=== PATIENT | female | born 1960 | race Caucasian/White ===

== ENCOUNTER 2017-02-15 15:30 | Emergency (ER) | payer MEDICAID ==
[2017-02-15 15:40] VITALS: BP 139/51
--- NOTE | 2017-02-15 16:56 | EDM.PDOC ---
ED HPI GENERAL MEDICAL PROBLEM - General Chief Complaint: General Stated Complaint: L HAND FROSTBITE Time Seen by Provider: 02/15/17 16:30 Source of Information: Reports: Patient, Family History Limitations: Reports: No Limitations - History of Present Illness INITIAL COMMENTS - FREE TEXT/NARRATIVE: Patient is a 56-year-old with known diabetes osteoarthritis of right hand states that she fell last night in the ice and snow could not get up for about 20 minutes when she went inside the house she noticed swelling of the tips of her fingers and decreased sensation on both the right and left hand worse in the left. She waited approximately 20 hours to coming to the emergency room and at this time she had swelling of both hands distal ends tips of fingers she did have some passive flexion but this was limited secondary to swelling. Onset: Today Duration: Hour(s): (20 hours a workable), Improving Location: Reports: Upper Extremity, Left, Upper Extremity, Right Quality: Reports: Burning, Throbbing Severity: Moderate Improves with: Reports: Rest Worsens with: Reports: Heat Therapy Context: Reports: Trauma Left Hand Pain Score (Numeric/FACES): 6 - Related Data Allergies Allergy/AdvReac Type Severity Reaction Status Date / Time adhesive Allergy Severe Hives Verified 10/23/14 15:59 zolpidem tartrate Allergy Intermediate Disorientat Verified 10/23/14 15:59 [From Korina] ion latex Allergy Cannot Verified 10/23/14 15:59 Remember Home Meds: Home Meds Aspirin [Children's Aspirin] 81 mg PO BEDTIME 07/11/13 [History] Calcium Carbonate/Vitamin D3 [Calcium 600 + D3 Softgel] 1 each PO QPM 07/11/13 [ History] Cinnamon Bark [Cinnamon] 1,000 mg PO QAM 07/11/13 [History] Glucagon,Human Recombinant [Glucagon Emergency Kit] 1 mg INJECT ASDIRECTED PRN 07/11/13 [History] Insulin Glarg,Human.Rec.Analog [LantUS] 25 unit SQ QAM 07/11/13 [History] Multivitamin [Multivitamins] 1 each PO QAM 07/11/13 [History] [place]-3/DHA/Epa/Fish Oil [Fish Oil 1,000 mg Softgel] 1 each PO BID 07/11/13 [ History] Verapamil HCl [Verapamil ER] 240 mg PO BEDTIME 07/11/13 [History] atorvaSTATin [Lipitor] 40 mg PO BEDTIME 07/11/13 [History] Amitriptyline [Elavil] 30 mg PO BEDTIME 02/24/15 [History] Insulin Aspart [Novolog] 8 unit SQ TIDMEALS 02/24/15 [History] Ibuprofen [Motrin] 400 mg PO Q6H 10 Days #40 tablet 02/15/17 [Rx] Oxybutynin 5 mg PO DAILY 02/15/17 [History] Past Medical History HEENT History: Reports: Allergic Rhinitis, Impaired Vision Cardiovascular History: Reports: Blood Clots/VTE/DVT, High Cholesterol, Hypertension Respiratory History: Reports: Asthma Gastrointestinal History: Reports: Hepatitis, Hiatal Hernia, Jaundice Genitourinary History: Reports: Renal Calculus Musculoskeletal History: Reports: Fracture, Osteoarthritis Neurological History: Reports: Headaches, Chronic, Migraines Psychiatric History: Reports: Addiction, Anxiety, Depression, Psych Hospitalization(s), Suicide Attempt Endocrine/Metabolic History: Reports: Diabetes, Type I Hematologic History: Reports: None, Anemia, Iron Deficiency Immunologic History: Reports: None Oncologic (Cancer) History: Reports: None Dermatologic History: Reports: None - Infectious Disease History Infectious Disease History: Reports: Chicken Pox, Measles, Mumps - Past Surgical History Head Surgeries/Procedures: Reports: Craniotomy HEENT Surgical History: Reports: Oral Surgery Respiratory Surgical History: Reports: None Female Surgical History: Reports: Tubal Ligation, Other (See Below) Musculoskeletal Surgical History: Reports: ORIF Oncologic Surgical History: Reports: None Dermatological Surgical History: Reports: None - Past Imaging History Past Imaging History: Reports: Mammogram (In about 1999) Social & Family History - Family History HEENT: Reports: Allergic Rhinitis Cardiac: Reports: [place] Respiratory: Reports: None GI: Reports: None : Reports: None OBGYN: Reports: None Musculoskeletal: Reports: Osteoarthritis Neurological: Reports: None Psychiatric: Reports: None Endocrine/Metabolic: Reports: Hypothyroidism Hematologic: Reports: None Dermatologic: Reports: None Oncologic: Reports: Colon, Lung - Tobacco Use Smoking Status *Q: Former Smoker Years of Tobacco use: 40 Packs/Tins Daily: 0.5 (Maximum use one pack per day) Used Tobacco, but Quit: Yes Month Tobacco Last Used: 1 Second Hand Smoke Exposure: Yes - Caffeine Use Caffeine Use: Reports: Soda - Alcohol Use Days Per Week of Alcohol Use: 1 (Previous DWI 2013 previous history of alcohol abuse in the 1980s until about 2013) Number of Drinks Per Day: 6 (Usually beer about twice per month currently) Total Drinks Per Week: 6 - Recreational Drug Use Recreational Drug Use: No Drug Use in Last 12 Months: No - Living Situation & Occupation Living situation: Reports: , with Family ED ROS GENERAL - Review of Systems Review Of Systems: See Below Constitutional: Reports: No Symptoms HEENT: Reports: No Symptoms Respiratory: Reports: No Symptoms Cardiovascular: Reports: No Symptoms Endocrine: Reports: Other (Diabetic) GI/Abdominal: Reports: No Symptoms : Reports: No Symptoms Musculoskeletal: Reports: Joint Swelling, Muscle Stiffness Skin: Reports: Erythema, Change in Color, Other (Blisters) Neurological: Reports: No Symptoms Psychiatric: Reports: Anxiety Hematologic/Lymphatic: Reports: No Symptoms Immunologic: Reports: No Symptoms ED EXAM, GENERAL - Physical Exam Exam: See Below Exam Limited By: No Limitations General Appearance: Alert, WD/WN, No Apparent Distress, Anxious Ears: Normal External Exam, Normal Canal, Hearing Grossly Normal, Normal TMs Nose: Normal Inspection, Normal Mucosa, No Blood Throat/Mouth: Normal Inspection, Normal Lips, Normal Teeth, Normal Gums, Normal Oropharynx, Normal Voice, No Airway Compromise Head: Atraumatic, Normocephalic Neck: Normal Inspection, Supple, Non-Tender, Full Range of Motion Respiratory/Chest: No Respiratory Distress, Lungs Clear, Normal Breath Sounds, No Accessory Muscle Use, Chest Non-Tender Cardiovascular: Normal Peripheral Pulses, Regular Rate, Rhythm, No Edema, No Gallop, No JVD, No Murmur, No Rub Peripheral Pulses: 2+: Radial (L), Radial (R) GI/Abdominal: Normal Bowel Sounds, Soft, Non-Tender, No Organomegaly, No Distention, No Abnormal Bruit, No Mass (Female) Exam: Deferred Rectal (Female) Exam: Deferred Back Exam: Normal Inspection, Full Range of Motion, NT Extremities: Other (Right hand swelling this distal tips of second through fifth finger with with redness and increased capillary refill in the tips of the second fourth and fifth the third finger has some ecchymosis with blisters the left hand was tender to touch with increase ecchymosis in the distal ends of the second through fifth finger also decreased range of motion decreased sensations to touch but had some range of motion passively) Course - Vital Signs Last Recorded V/S: Last Vital Signs Temp 98.7 F 02/15/17 15:32 Pulse 97 02/15/17 15:32 Resp 16 02/15/17 15:32 BP 139/51 L 02/15/17 15:32 Pulse Ox 98 02/15/17 15:32 Departure - Departure Time of Disposition: 17:04 Disposition: Home, Self-Care 01 Condition: Fair Clinical Impression: Frostbite of both great toes - Discharge Information Referrals: Monica Ng PA [Primary Care Provider] - Care Plan Goals: Patient was started on Motrin 400 every 6 hours for 10 days also will come in tomorrow for dressing changes around 2:30 2:52 in the afternoon
[2017-02-15 17:20] LABS: CHLORIDE,CL 103 mmol/L (98-107); SODIUM,NA 140 mmol/L (136-145)
== END 2017-02-15 17:30 | disposition home or self-care (01) ==
LOC: LL.ED 15:30
DX: S60.222A Contusion of left hand, initial encounter (principal); S60.221A Contusion of right hand, initial encounter; T33.832A Superficial frostbite of left toe(s), initial encounter; T33.831A Superficial frostbite of right toe(s), initial encounter; I10 Essential (primary) hypertension; E78.00 Pure hypercholesterolemia, unspecified; E10.9 Type 1 diabetes mellitus without complications; F32.9 Major depressive disorder, single episode, unspecified; Z87.891 Personal history of nicotine dependence; Z79.4 Long term (current) use of insulin; Z79.82 Long term (current) use of aspirin; Z79.899 Other long term (current) drug therapy; Z88.8 Allergy status to other drugs, medicaments and biological substances; Z91.040 Latex allergy status; Z91.048 Other nonmedicinal substance allergy status; X31.XXXA Exposure to excessive natural cold, initial encounter; W00.0XXA Fall on same level due to ice and snow, initial encounter
CPT/HCPCS: 36415; 80048; 99283

== ENCOUNTER 2018-09-04 09:13 | Day surgery (SDC) | payer MEDICAID ==
[~2018-09-04 09:13] MED LIST: Midazolam 1 MG/ML 2 ML SDV ONE; Propofol 200 MG/20 ML SDV ONE
[2018-09-04] MEDS ORDERED: Lactated Ringers 1,000 ML IV SCH (09:15)
[2018-09-04] MEDS ORDERED: Sodium Chloride 0.9% 10 ML Syringe FLUSH PRN (09:15)
[2018-09-04] MEDS ORDERED: Albuterol/Ipratropium 3.0-0.5 MG/3 ML Neb Soln NEB ONE (10:16)
--- NOTE | 2018-09-04 10:21 | PCM.HPR ---
H & P Addendum review - H & P Addendum Review Date of Original H & P: 08/26/18 Date Reviewed: 09/04/18 Time Reviewed: 10:21 Patient was Examined: No Changes
[2018-09-04] MEDS ORDERED: Insulin Regular, Human 100 Units/ML 3 ML Vial SUBCUT ONE (10:23)
[2018-09-04] MEDS ORDERED: Propofol 200 MG/20 ML SDV ONE (10:40)
[2018-09-04] MEDS ORDERED: Midazolam 1 MG/ML 2 ML SDV ONE (10:40)
--- NOTE | 2018-09-04 11:07 | PCM.OPNOTE ---
- General Post-Op/Procedure Note Date of Surgery/Procedure: 09/04/18 Operative Procedure(s): Colonoscopy Findings: Normal Pre Op Diagnosis: Screening Post-Op Diagnosis: Same Anesthesia Technique: LOUISA Primary Surgeon: Oswaldo Melendez Anesthesia Provider: Kasey Vora Complications: None Condition: Good
[2018-09-04 13:30] VITALS: BP 101/66; PULSE 92
--- NOTE | 2018-09-04 14:34 | OR ---
Date of Procedure: 09/04/2018 PREOPERATIVE DIAGNOSIS: Colon screening. POSTOPERATIVE DIAGNOSIS: Normal colonoscopy. PROCEDURE: Colonoscopy. ANESTHESIA: IV sedation. DESCRIPTION OF PROCEDURE: The patient was brought to the procedure room where she was placed on her left side and IV sedation administered. Digital rectal exam was performed which was normal. Colonoscope was inserted and advanced to the level of the cecum with some difficulty getting through a tortuous colon requiring pressure on the abdomen. I was able to reach the cecum which was confirmed by identifying the appendiceal lumen and the ileocecal valve. The prep was good and surfaces were well visualized. Upon withdrawing the scope, the ascending, transverse, and descending colon were normal in appearance. Sigmoid colon and rectum were normal. Retroflexion was normal. Air was removed and the scope withdrawn. The patient tolerated the procedure well and returned to Recovery in stable condition. Recommend routine colon screening in 10 years. PASHA LEIVA MD /[id number]
== END 2018-09-04 12:35 | disposition home or self-care (01) ==
LOC: LL.SDS 09:13
PROVIDERS: ATTEND Surgery
DX: Z12.11 Encounter for screening for malignant neoplasm of colon (principal); Q43.8 Other specified congenital malformations of intestine; F10.10 Alcohol abuse, uncomplicated; J44.9 Chronic obstructive pulmonary disease, unspecified; M19.049 Primary osteoarthritis, unspecified hand; E10.649 Type 1 diabetes mellitus with hypoglycemia without coma; I10 Essential (primary) hypertension; E78.5 Hyperlipidemia, unspecified; G47.00 Insomnia, unspecified; Z80.0 Family history of malignant neoplasm of digestive organs; Z79.899 Other long term (current) drug therapy; Z79.4 Long term (current) use of insulin; Z99.81 Dependence on supplemental oxygen; Z79.51 Long term (current) use of inhaled steroids; Z79.82 Long term (current) use of aspirin; Z91.040 Latex allergy status; Z88.8 Allergy status to other drugs, medicaments and biological substances; Z91.048 Other nonmedicinal substance allergy status
CPT/HCPCS: 45378; 82962; J1815; J2250; J2704; J7120; J7620-GY

== ENCOUNTER 2018-10-07 16:52 | Emergency (ER) | payer MEDICAID ==
[2018-10-07] MEDS ORDERED: Albuterol/Ipratropium 3.0-0.5 MG/3 ML Neb Soln ONE (17:01)
[2018-10-07] MEDS ORDERED: Albuterol/Ipratropium 3.0-0.5 MG/3 ML Neb Soln NEB ONE (17:01)
[2018-10-07 17:27] LABS: CHLORIDE,CL 103 mmol/L (98-107); SODIUM,NA 138 mmol/L (136-145)
--- NOTE | 2018-10-07 18:06 | EDM.PDOC ---
ED HPI GENERAL MEDICAL PROBLEM - General Chief Complaint: Respiratory Problem Stated Complaint: short of breath Time Seen by Provider: 10/07/18 17:00 Source of Information: Reports: Patient History Limitations: Reports: No Limitations - History of Present Illness INITIAL COMMENTS - FREE TEXT/NARRATIVE: Patient is a 58-year-old with history of COPD shortness of breath patient is on albuterol Atrovent be a 4 times a day states that this morning she had her albuterol later in the day went to eat and while in the bar was short of breath which progressed at that time 911 was called and she was transferred in Onset: Sudden Duration: Hour(s):, Constant Location: Reports: Chest Severity: Severe Improves with: Reports: Medication Worsens with: Reports: None - Related Data Allergies Allergy/AdvReac Type Severity Reaction Status Date / Time adhesive Allergy Severe Hives Verified 10/07/18 17:11 zolpidem tartrate Allergy Intermediate Disorientat Verified 10/07/18 17:11 [From Korina] ion latex Allergy Cannot Verified 10/07/18 17:11 Remember Home Meds: Home Meds Calcium Carbonate/Vitamin D3 [Calcium 600 + Vit D 400 Softgl] 1 each PO QPM [History] Cinnamon Bark [Cinnamon] 500 mg PO QAM 07/11/13 [History] Insulin Glarg,Human.Rec.Analog [Lantus] 15 unit SQ BEDTIME 07/11/13 [History] Multivitamin [Multivitamins] 1 each PO QAM 07/11/13 [History] Verapamil HCl [Verapamil ER] 240 mg PO BEDTIME 07/11/13 [History] atorvaSTATin [Lipitor] 40 mg PO BEDTIME 07/11/13 [History] Amitriptyline [Elavil] 30 mg PO BEDTIME 02/24/15 [History] Insulin Aspart [Novolog Flexpen] 5 unit SQ TIDMEALS 02/24/15 [History] Albuterol/Ipratropium [DuoNeb 3.0-0.5 MG/3 ML] 1 inh INH QID 09/04/18 [History] Aspirin [Halfprin] 1 tab PO DAILY 09/04/18 [History] Budesonide [Pulmicort] 1 applic INH BID 09/04/18 [History] Dextrose [Glutose 15] 1 tube PO TID PRN 09/04/18 [History] Glucagon HCl 1 mg SUBCUT ASDIRECTED PRN 09/04/18 [History] Vitamin B Complex 1 cap PO DAILY 09/04/18 [History] Past Medical History HEENT History: Reports: Allergic Rhinitis, Cataract, Impaired Vision Cardiovascular History: Reports: Blood Clots/VTE/DVT, High Cholesterol, Hypertension, Other (See Below) Other Cardiovascular History: Non-ST elevation [place] Respiratory History: Reports: Asthma, Bronchitis, Recurrent, COPD, Other (See Below) Other Respiratory History: Acute respiratory failure with hypoxia Gastrointestinal History: Reports: Hepatitis, Hiatal Hernia, Jaundice Genitourinary History: Reports: Renal Calculus, Urinary Incontinence Musculoskeletal History: Reports: Fracture, Osteoarthritis Neurological History: Reports: Concussion, Headaches, Chronic, Head Trauma, Migraines Psychiatric History: Reports: Addiction, Anxiety, Depression, Psych Hospitalization(s), Suicide Attempt Endocrine/Metabolic History: Reports: Diabetes, Type I Hematologic History: Reports: None, Anemia, Iron Deficiency Immunologic History: Reports: None Oncologic (Cancer) History: Reports: None Dermatologic History: Reports: Other (See Below) Other Dermatologic History: Hx of cabral bite both hands - Infectious Disease History Infectious Disease History: Reports: Chicken Pox, Measles, Mumps - Past Surgical History Head Surgeries/Procedures: Reports: Craniotomy HEENT Surgical History: Reports: Oral Surgery Respiratory Surgical History: Reports: None Female Surgical History: Reports: Tubal Ligation, Other (See Below) Musculoskeletal Surgical History: Reports: ORIF Oncologic Surgical History: Reports: None Dermatological Surgical History: Reports: None - Past Imaging History Past Imaging History: Reports: Mammogram (In about 1999) Social & Family History - Family History HEENT: Reports: Allergic Rhinitis Cardiac: Reports: [place] Respiratory: Reports: None GI: Reports: None : Reports: None OBGYN: Reports: None Musculoskeletal: Reports: Osteoarthritis Neurological: Reports: None Psychiatric: Reports: None Endocrine/Metabolic: Reports: Hypothyroidism Hematologic: Reports: None Dermatologic: Reports: None Oncologic: Reports: Colon, Lung - Caffeine Use Caffeine Use: Reports: Soda - Living Situation & Occupation Living situation: Reports: , with Family ED ROS GENERAL - Review of Systems Review Of Systems: See Below Constitutional: Reports: No Symptoms HEENT: Reports: No Symptoms Respiratory: Reports: Shortness of Breath, Wheezing Cardiovascular: Reports: Palpitations Endocrine: Reports: No Symptoms GI/Abdominal: Reports: No Symptoms : Reports: No Symptoms Musculoskeletal: Reports: No Symptoms Skin: Reports: No Symptoms Neurological: Reports: No Symptoms Psychiatric: Reports: No Symptoms Hematologic/Lymphatic: Reports: No Symptoms Immunologic: Reports: No Symptoms ED EXAM, GENERAL - Physical Exam Exam: See Below Exam Limited By: No Limitations General Appearance: Moderate Distress Ears: Normal External Exam, Normal Canal, Hearing Grossly Normal, Normal TMs Nose: Normal Inspection, Normal Mucosa, No Blood Throat/Mouth: Normal Inspection, Normal Lips, Normal Teeth, Normal Gums, Normal Oropharynx, Normal Voice, No Airway Compromise Head: Atraumatic, Normocephalic Neck: Normal Inspection, Supple, Non-Tender, Full Range of Motion Respiratory/Chest: Respiratory Distress, Decreased Breath Sounds, Prolonged Expiration Cardiovascular: Normal Peripheral Pulses, Regular Rate, Rhythm, No Edema, No Gallop, No JVD, No Murmur, No Rub GI/Abdominal: Normal Bowel Sounds, Soft, Non-Tender, No Organomegaly, No Distention, No Abnormal Bruit, No Mass Back Exam: Normal Inspection, Full Range of Motion, NT Extremities: Normal Inspection, Normal Range of Motion, Non-Tender, Normal Capillary Refill, No Pedal Edema Neurological: Alert, Oriented, CN II-XII Intact, Normal Cognition, Normal Gait, Normal Reflexes, No Motor/Sensory Deficits Psychiatric: Normal Affect, Normal Mood Skin Exam: Warm, Dry, Intact, Normal Color, No Rash Lymphatic: No Adenopathy Course - Vital Signs Last Recorded V/S: Last Vital Signs Temp 97.6 F 10/07/18 17:00 Pulse 122 H 10/07/18 17:00 Resp 30 H 10/07/18 17:00 BP 132/68 10/07/18 17:00 Pulse Ox 95 10/07/18 17:00 - Orders/Labs/Meds Orders: Active Orders 24 hr Category Date Time Status RT Aerosol Therapy [RC] ASDIRECTED Care 10/07/18 17:02 Active Chest 2V [CR] Stat Exams 10/07/18 17:00 Taken Labs: Laboratory Tests 10/07/18 10/07/18 Range/Units 17:00 17:00 WBC 8.1 (4.0-10.2) K/uL RBC 5.33 H (3.77-5.09) M/uL Hgb 16.9 H D (11.7-15.5) g/dL Hct 48.4 H (34.0-46.0) % MCV 90.8 D (84.0-98.0) fL MCH 31.7 (28.2-33.3) pg MCHC 34.9 (31.7-36.0) g/dL RDW 13.3 (11.2-14.1) % Plt Count 306 D (150-350) K/uL Neut % (Auto) 42.9 L (45.0-80.0) % Lymph % (Auto) 26.2 (10.0-50.0) % [place] % (Auto) 5.2 (2.0-14.0) % Eos % (Auto) 25.0 H (0.0-5.0) % Baso % (Auto) 0.7 (0.0-2.0) % Neut # (Auto) 3.47 (1.40-7.00) K/uL Lymph # (Auto) 2.12 (0.50-3.50) K/uL [place] # (Auto) 0.42 (0.00-1.00) K/uL Eos # (Auto) 2.02 H (0.00-0.50) K/uL Baso # (Auto) 0.06 (0.00-0.20) K/uL Sodium 138 (136-145) mmol/L Potassium 4.6 (3.5-5.1) mmol/L Chloride 103 (98-107) mmol/L Carbon Dioxide 27.7 (21.0-32.0) mmol/L BUN 11 (7-18) mg/dL Creatinine 0.70 (0.51-1.17) mg/dL Est Cr Clr Drug Dosing TNP Estimated GFR (MDRD) > 60 mL/min Glucose 198 H (74-106) mg/dL Calcium 9.7 (8.5-10.1) mg/dL NT-Pro-B Natriuret Pep 15 (0-125) pg/mL Meds: Medications Discontinued Medications Generic Name Dose Route Start Last Admin Trade Name Freq PRN Reason Stop Dose Admin Albuterol/Ipratropium Confirm 10/07/18 17:01 10/07/18 17:04 Duoneb 3.0-0.5 Mg/3 Ml Administered 10/07/18 17:02 Not Given Dose 3 ml .ROUTE .STK-MED ONE Albuterol/Ipratropium 3 ml 10/07/18 17:01 10/07/18 17:04 Duoneb 3.0-0.5 Mg/3 Ml NEB 10/07/18 17:02 3 ml ONETIME ONE Administration Departure - Departure Time of Disposition: 18:06 Disposition: Home, Self-Care 01 Condition: Fair Clinical Impression: Hyperglycemia COPD (chronic obstructive pulmonary disease) Qualifiers: COPD type: COPD with acute exacerbation Qualified Code(s): J44.1 - Chronic obstructive pulmonary disease with (acute) exacerbation - Discharge Information *PRESCRIPTION DRUG MONITORING PROGRAM REVIEWED*: No *COPY OF PRESCRIPTION DRUG MONITORING REPORT IN PATIENT TOD: No Referrals: Swathi Hernandez PA-C [Primary Care Provider] - Care Plan Goals: Patient will be sent home on albuterol she also takes oxygen at home we'll continue start on prednisone 20 mg daily and then 10 daily for another 10 days thank follow-up with provider in 3-4 days - My Orders Last 24 Hours: My Active Orders 10/07/18 17:00 Chest 2V [CR] Stat 10/07/18 17:02 RT Aerosol Therapy [RC] ASDIRECTED - Assessment/Plan Last 24 Hours: My Active Orders 10/07/18 17:00 Chest 2V [CR] Stat 10/07/18 17:02 RT Aerosol Therapy [RC] ASDIRECTED
[2018-10-07 19:13] VITALS: BP 113/57; PULSE 101
== END 2018-10-07 18:35 | disposition home or self-care (01) ==
LOC: LL.ED 16:52 → SUPCPDRO 16:52 → LL.ED 18:35
DX: S00.10XA Contusion of unspecified eyelid and periocular area, initial encounter (principal); J44.1 Chronic obstructive pulmonary disease with (acute) exacerbation; E10.65 Type 1 diabetes mellitus with hyperglycemia; E78.00 Pure hypercholesterolemia, unspecified; I10 Essential (primary) hypertension; F41.9 Anxiety disorder, unspecified; F32.9 Major depressive disorder, single episode, unspecified; Z91.040 Latex allergy status; Z91.048 Other nonmedicinal substance allergy status; Z88.8 Allergy status to other drugs, medicaments and biological substances; Z79.899 Other long term (current) drug therapy; Z79.82 Long term (current) use of aspirin; Z86.718 Personal history of other venous thrombosis and embolism; Z87.442 Personal history of urinary calculi; W18.39XA Other fall on same level, initial encounter
CPT/HCPCS: 36000; 36415; 71046; 80048; 83880; 85025; 94640; 99285-25; J7620-GY

== ENCOUNTER 2018-10-29 09:26 | Emergency (ER) | payer MEDICAID ==
[2018-10-29] MEDS: 50% Dextrose in Water 50 ML Syringe IVPUSH ONE (09:46)
[2018-10-29] MEDS: Sodium Chloride 0.9% 10 ML Syringe FLUSH PRN (09:47)
[2018-10-29] MEDS: 50% Dextrose in Water 50 ML Syringe ONE (09:47)
[2018-10-29 10:06] LABS: CHLORIDE,CL 105 mmol/L (98-107); SODIUM,NA 145 mmol/L (136-145)
[2018-10-29 10:14] VITALS: BP 104/58
--- NOTE | 2018-10-29 10:22 | EDM.PDOC ---
ED HPI GENERAL MEDICAL PROBLEM - General Chief Complaint: General Stated Complaint: hypoglycemia Time Seen by Provider: 10/29/18 09:58 Source of Information: Reports: Patient History Limitations: Reports: No Limitations - History of Present Illness INITIAL COMMENTS - FREE TEXT/NARRATIVE: Patient brought to ER by , due to symptoms of hypoglycemia. Patient says to us that she took her morning insulin but did not really eat any carbs. The story as to what she ate for breakfast varied over time, however as her interaction improved after receiving D50 she was pretty certain that she had eaten eggs. Her said that patient had Cheerios, but she denies this. returned from [facility]SS run and found patient to be acting funny. He did not check blood glucose nor did he give her anything to eat or drink. He put her in the car and drove her to the ER. He could not provide any additional info. As patient improved after receiving D50/juice she said that she has not been ill recently. No change in baseline. No other complaints. It does sound that she changes up her insulin doses on the long acting insulin pretty regularly. She also uses a sliding scale of short acting. Blood sugar when she woke up today was over 300 prior to her taking any insulin. It was 24 at bedside glucose check, and tyler to 40 after drinking juice. IV was established and D50 given. - Related Data Allergies Allergy/AdvReac Type Severity Reaction Status Date / Time adhesive Allergy Severe Hives Verified 10/29/18 09:48 zolpidem tartrate Allergy Intermediate Disorientat Verified 10/29/18 09:48 [From Korina] ion latex Allergy Cannot Verified 10/29/18 09:48 Remember Home Meds: Home Meds Calcium Carbonate/Vitamin D3 [Calcium 600 + Vit D 400 Softgl] 1 each PO QPM [History] Cinnamon Bark [Cinnamon] 500 mg PO QAM 07/11/13 [History] Insulin Glarg,Human.Rec.Analog [Lantus] 15 unit SQ BEDTIME 07/11/13 [History] Multivitamin [Multivitamins] 1 each PO QAM 07/11/13 [History] Verapamil HCl [Verapamil ER] 240 mg PO BEDTIME 07/11/13 [History] atorvaSTATin [Lipitor] 40 mg PO BEDTIME 07/11/13 [History] Amitriptyline [Elavil] 30 mg PO BEDTIME 02/24/15 [History] Insulin Aspart [Novolog Flexpen] 5 unit SQ TIDMEALS 02/24/15 [History] Albuterol/Ipratropium [DuoNeb 3.0-0.5 MG/3 ML] 1 inh INH QID 09/04/18 [History] Aspirin [Halfprin] 1 tab PO DAILY 09/04/18 [History] Budesonide [Pulmicort] 1 applic INH BID 09/04/18 [History] Dextrose [Glutose 15] 1 tube PO TID PRN 09/04/18 [History] Glucagon HCl 1 mg SUBCUT ASDIRECTED PRN 09/04/18 [History] Vitamin B Complex 1 cap PO DAILY 09/04/18 [History] Past Medical History HEENT History: Reports: Allergic Rhinitis, Cataract, Impaired Vision Cardiovascular History: Reports: Blood Clots/VTE/DVT, High Cholesterol, Hypertension, Other (See Below) Other Cardiovascular History: Non-ST elevation [place] Respiratory History: Reports: Asthma, Bronchitis, Recurrent, COPD, Other (See Below) Other Respiratory History: Acute respiratory failure with hypoxia Gastrointestinal History: Reports: Hepatitis, Hiatal Hernia, Jaundice Genitourinary History: Reports: Renal Calculus, Urinary Incontinence Musculoskeletal History: Reports: Fracture, Osteoarthritis Neurological History: Reports: Concussion, Headaches, Chronic, Head Trauma, Migraines Psychiatric History: Reports: Addiction, Anxiety, Depression, Psych Hospitalization(s), Suicide Attempt Endocrine/Metabolic History: Reports: Diabetes, Type I Hematologic History: Reports: None, Anemia, Iron Deficiency Immunologic History: Reports: None Oncologic (Cancer) History: Reports: None Dermatologic History: Reports: Other (See Below) Other Dermatologic History: Hx of cabral bite both hands - Infectious Disease History Infectious Disease History: Reports: Chicken Pox, Measles, Mumps - Past Surgical History Head Surgeries/Procedures: Reports: Craniotomy HEENT Surgical History: Reports: Oral Surgery Respiratory Surgical History: Reports: None Female Surgical History: Reports: Tubal Ligation, Other (See Below) Musculoskeletal Surgical History: Reports: ORIF Oncologic Surgical History: Reports: None Dermatological Surgical History: Reports: None - Past Imaging History Past Imaging History: Reports: Mammogram (In about 1999) Social & Family History - Family History HEENT: Reports: Allergic Rhinitis Cardiac: Reports: [place] Respiratory: Reports: None GI: Reports: None : Reports: None OBGYN: Reports: None Musculoskeletal: Reports: Osteoarthritis Neurological: Reports: None Psychiatric: Reports: None Endocrine/Metabolic: Reports: Hypothyroidism Hematologic: Reports: None Dermatologic: Reports: None Oncologic: Reports: Colon, Lung - Tobacco Use Smoking Status *Q: Former Smoker Used Tobacco, but Quit: Yes Month/Year Tobacco Last Used: 01/2017 - Caffeine Use Caffeine Use: Reports: Coffee, Soda Other Caffeine Use: 2 cups of coffee per day. 1-2 pops per day - Alcohol Use Alcohol Use History: Yes - Recreational Drug Use Recreational Drug Use: No Drug Use in Last 12 Months: No Recreational Drug Last Use: Patient was user of illicit drugs in past. - Living Situation & Occupation Living situation: Reports: , with Family ED ROS GENERAL - Review of Systems Review Of Systems: ROS reveals no pertinent complaints other than HPI. ED EXAM, GENERAL - Physical Exam Exam: See Below Exam Limited By: No Limitations General Appearance: Alert, Thin, Other (Appears much older than stated age) Eye Exam: Bilateral Eye: EOMI, PERRL Ears: Normal External Exam Nose: No: Nasal Deformity, Nasal Swelling, Nasal Drainage Throat/Mouth: Normal Lips, Normal Voice, No Airway Compromise, Other (missing teeth) Head: Atraumatic, Normocephalic Neck: Supple Respiratory/Chest: No Respiratory Distress, Lungs Clear, Normal Breath Sounds, No Accessory Muscle Use, Chest Non-Tender Cardiovascular: Normal Peripheral Pulses, Regular Rate, Rhythm, No Murmur Peripheral Pulses: 2+: Radial (L), Radial (R) GI/Abdominal: Soft, Non-Tender, No Distention (Female) Exam: Deferred Rectal (Female) Exam: Deferred Back Exam: No: CVA Tenderness (L), CVA Tenderness (R), Muscle Spasm Extremities: Non-Tender, Normal Capillary Refill Neurological: Alert, Oriented, Normal Cognition, Other (Equal tone/strength bilaterally) Psychiatric: Normal Affect Skin Exam: Warm, Dry, Intact, Normal Color Course - Vital Signs Last Recorded V/S: Last Vital Signs Temp 36.7 C 10/29/18 09:27 Pulse 88 10/29/18 10:14 Resp 16 10/29/18 10:14 BP 104/58 L 10/29/18 10:14 Pulse Ox 99 10/29/18 10:14 - Orders/Labs/Meds Orders: Active Orders 24 hr Category Date Time Status Glucose [Blood Glucose Check, Bedside] [RC] ONETIME Care 10/29/18 10:14 Active Saline Lock Insert [OM.PC] Routine Oth 10/29/18 09:30 Ordered Labs: Laboratory Tests 10/29/18 10/29/18 10/29/18 Range/Units 09:20 09:30 09:30 WBC (4.0-10.2) K/uL RBC (3.77-5.09) M/uL Hgb (11.7-15.5) g/dL Hct (34.0-46.0) % MCV (84.0-98.0) fL MCH (28.2-33.3) pg MCHC (31.7-36.0) g/dL RDW (11.2-14.1) % Plt Count (150-350) K/uL Neut % (Auto) (45.0-80.0) % Lymph % (Auto) (10.0-50.0) % [place] % (Auto) (2.0-14.0) % Eos % (Auto) (0.0-5.0) % Baso % (Auto) (0.0-2.0) % Neut # (Auto) (1.40-7.00) K/uL Lymph # (Auto) (0.50-3.50) K/uL [place] # (Auto) (0.00-1.00) K/uL Eos # (Auto) (0.00-0.50) K/uL Baso # (Auto) (0.00-0.20) K/uL Sodium 145 (136-145) mmol/L Potassium 4.2 (3.5-5.1) mmol/L Chloride 105 (98-107) mmol/L Carbon Dioxide 31.1 (21.0-32.0) mmol/L BUN 10 (7-18) mg/dL Creatinine 0.66 (0.51-1.17) mg/dL Est Cr Clr Drug Dosing TNP Estimated GFR (MDRD) > 60 mL/min Glucose 40 L* (74-106) mg/dL Calcium 10.0 (8.5-10.1) mg/dL Total Bilirubin 0.6 (0.2-1.0) mg/dL AST 24 (15-37) U/L ALT 33 (12-78) U/L Alkaline Phosphatase 148 H (46-116) IU/L Total Protein 8.6 H (6.4-8.2) g/dL Albumin 4.5 (3.4-5.0) g/dL Specimen Type Urine Color Urine Appearance Urine pH (5.0-9.0) Ur Specific [place] (1.005-1.030) Urine Protein (NEGATIVE) mg/dL Urine Glucose (UA) (NEGATIVE) mg/dL Urine Ketones (NEGATIVE) mg/dL Urine Occult Blood (NEGATIVE) Urine Nitrite (NEGATIVE) Urine Bilirubin (NEGATIVE) Urine Urobilinogen (0.2-1.0) E.U./dL Ur Leukocyte Esterase (NEGATIVE) Urine RBC /HPF Urine WBC /HPF Ur Epithelial Cells /LPF Urine Bacteria (NONE TO FEW) /HPF Urine Opiates Screen (NEGATIVE) Urine Methadone Screen (NEGATIVE) U Acetaminophen Screen (NEGATIVE) Ur Barbiturates Screen (NEGATIVE) Ur Tricyclics Screen (NEGATIVE) Ur Phencyclidine Scrn (NEGATIVE) Ur Amphetamine Screen (NEGATIVE) U Methamphetamines Scrn (NEGATIVE) U Benzodiazepines Scrn (NEGATIVE) U Cocaine Metab Screen (NEGATIVE) U Marijuana (THC) Screen (NEGATIVE) Ethyl Alcohol 0.000 (0.000-0.080) g/dL 10/29/18 10/29/18 Range/Units 09:31 10:22 WBC (4.0-10.2) K/uL RBC (3.77-5.09) M/uL Hgb (11.7-15.5) g/dL Hct (34.0-46.0) % MCV (84.0-98.0) fL MCH (28.2-33.3) pg MCHC (31.7-36.0) g/dL RDW (11.2-14.1) % Plt Count (150-350) K/uL Neut % (Auto) (45.0-80.0) % Lymph % (Auto) (10.0-50.0) % [place] % (Auto) (2.0-14.0) % Eos % (Auto) (0.0-5.0) % Baso % (Auto) (0.0-2.0) % Neut # (Auto) (1.40-7.00) K/uL Lymph # (Auto) (0.50-3.50) K/uL [place] # (Auto) (0.00-1.00) K/uL Eos # (Auto) (0.00-0.50) K/uL Baso # (Auto) (0.00-0.20) K/uL Sodium (136-145) mmol/L Potassium (3.5-5.1) mmol/L Chloride (98-107) mmol/L Carbon Dioxide (21.0-32.0) mmol/L BUN (7-18) mg/dL Creatinine (0.51-1.17) mg/dL Est Cr Clr Drug Dosing Estimated GFR (MDRD) mL/min Glucose (74-106) mg/dL Calcium (8.5-10.1) mg/dL Total Bilirubin (0.2-1.0) mg/dL AST (15-37) U/L ALT (12-78) U/L Alkaline Phosphatase (46-116) IU/L Total Protein (6.4-8.2) g/dL Albumin (3.4-5.0) g/dL Specimen Type Urinblad Urine Color Yellow Urine Appearance Clear Urine pH 8.5 (5.0-9.0) Ur Specific [place] 1.015 (1.005-1.030) Urine Protein Negative (NEGATIVE) mg/dL Urine Glucose (UA) 500 H (NEGATIVE) mg/dL Urine Ketones Negative (NEGATIVE) mg/dL Urine Occult Blood Moderate H (NEGATIVE) Urine Nitrite Negative (NEGATIVE) Urine Bilirubin Negative (NEGATIVE) Urine Urobilinogen 1.0 (0.2-1.0) E.U./dL Ur Leukocyte Esterase Negative (NEGATIVE) Urine RBC 20-30 H /HPF Urine WBC 0-5 /HPF Ur Epithelial Cells Rare /LPF Urine Bacteria Rare (NONE TO FEW) /HPF Urine Opiates Screen Negative (NEGATIVE) Urine Methadone Screen Negative (NEGATIVE) U Acetaminophen Screen Negative (NEGATIVE) Ur Barbiturates Screen Negative (NEGATIVE) Ur Tricyclics Screen Positive H (NEGATIVE) Ur Phencyclidine Scrn Negative (NEGATIVE) Ur Amphetamine Screen Negative (NEGATIVE) U Methamphetamines Scrn Negative (NEGATIVE) U Benzodiazepines Scrn Negative (NEGATIVE) U Cocaine Metab Screen Negative (NEGATIVE) U Marijuana (THC) Screen Negative (NEGATIVE) Ethyl Alcohol (0.000-0.080) g/dL Meds: Medications Discontinued Medications Generic Name Dose Route Start Last Admin Trade Name Ovidio PRN Reason Stop Dose Admin Dextrose/Water Confirm 10/29/18 09:29 10/29/18 09:47 Dextrose 50% In Water Administered 10/29/18 09:30 Not Given Dose 50 ml .ROUTE .STK-MED ONE Dextrose/Water 50 ml 10/29/18 09:32 10/29/18 09:46 Dextrose 50% In Water IVPUSH 10/29/18 09:33 50 ml ONETIME ONE Administration Sodium Chloride 10 ml 10/29/18 09:30 10/29/18 09:47 Saline Flush FLUSH 10 ml ASDIRECTED PRN Administration Keep Vein Open - Re-Assessments/Exams Free Text/Narrative Re-Assessment/Exam: 10/29/18 10:49 Labs drawn. CBC as yet unavailable as hospital machine is down and sample must be sent to [facility] for processing. Chem showed glucose of 40. After D50 blood glucose elevated to 212. UA negative for signs of UTI. Some blood noted in specimen. ETOH negative. Drug screen negative except for tricyclics which she has been prescribed. Patient's vital signs stable. She reported that she felt like her usual self and wished to go home. Discussed importance of following up with Endocrinology given that she missed her appointment that was supposedly today at 8:30. When asked why she missed it she stated she just didn't feel like getting up that early today. It does appear that she is noncompliant with insulin dosing regimen and diet to some degree, in addition to not following up. Importance if diet/carb intake/ consistent insulin usage reviewed prior to discharge. Intervention strategies at home for hypoglycemic episodes reviewed with and patient by ER nurse prior to discharge. Departure - Departure Time of Disposition: 10:30 Disposition: Home, Self-Care 01 Condition: Good Clinical Impression: Hypoglycemia, Noncompliance - Discharge Information *PRESCRIPTION DRUG MONITORING PROGRAM REVIEWED*: Not Applicable *COPY OF PRESCRIPTION DRUG MONITORING REPORT IN PATIENT TOD: Not Applicable Instructions: Hypoglycemia, Raoo-da-Dari Referrals: PCP,Unknown [Ordering Only Provider] - Forms: ED Department Discharge Additional Instructions: Monitor your food intake and insulin coverage closely. Make a new appointment to see Endocrinology since you missed your most recent appointment. Follow up with your primary provider within a week to review insulin use and blood sugar trends to see if med adjustments are needed. Have emergency juice/snacks at home available so that signs of hypoglycemia can be treated immediately when recognized at home. This avoids delays in treating the low blood sugar. Follow up otherwise as needed if problems are noted. - My Orders Last 24 Hours: My Active Orders 10/29/18 09:30 Saline Lock Insert [OM.PC] Routine 10/29/18 10:14 Glucose [Blood Glucose Check, Bedside] [RC] ONETIME - Assessment/Plan Last 24 Hours: My Active Orders 10/29/18 09:30 Saline Lock Insert [OM.PC] Routine 10/29/18 10:14 Glucose [Blood Glucose Check, Bedside] [RC] ONETIME
[2018-10-29 10:41] LABS: BARBITURATE SCREEN,URINE NEGATIVE (NEGATIVE); BENZODIAZEPINES SCREEN,URINE NEGATIVE (NEGATIVE); TCA SCREEN,URINE POSITIVE (NEGATIVE); THC SCREEN,URINE 50 NG/ML NEGATIVE (NEGATIVE)
== END 2018-10-29 10:35 | disposition home or self-care (01) ==
LOC: LL.ED 09:26
DX: E10.649 Type 1 diabetes mellitus with hypoglycemia without coma (principal); I10 Essential (primary) hypertension; E78.00 Pure hypercholesterolemia, unspecified; F41.9 Anxiety disorder, unspecified; F32.9 Major depressive disorder, single episode, unspecified; J44.9 Chronic obstructive pulmonary disease, unspecified; J45.909 Unspecified asthma, uncomplicated; Z86.2 Personal history of diseases of the blood and blood-forming organs and certain disorders involving the immune mechanism; Z87.891 Personal history of nicotine dependence; Z98.51 Tubal ligation status; Z79.4 Long term (current) use of insulin; Z79.51 Long term (current) use of inhaled steroids; Z79.899 Other long term (current) drug therapy; Z79.82 Long term (current) use of aspirin; Z91.040 Latex allergy status; Z91.048 Other nonmedicinal substance allergy status
CPT/HCPCS: 36415; 80053; 80305-QW; 81001; 82962; 85025; 96374; 99284-25; G0480; J7060

== ENCOUNTER 2020-07-22 12:44 | Emergency (ER) | payer MEDICAID ==
[2020-07-22 12:51] VITALS: BP 124/56; PULSE 89
[2020-07-22] MEDS ORDERED: Albuterol/Ipratropium 3.0-0.5 MG/3 ML Neb Soln NEB ONE (12:52)
[2020-07-22] MEDS ORDERED: methylPREDNISolone Sodium Succinate 125 MG/2 ML SDV IV ONE (12:55)
[2020-07-22] MEDS ORDERED: methylPREDNISolone Sodium Succinate 125 MG/2 ML SDV IVPUSH ONE (13:35)
[2020-07-22] MEDS ORDERED: methylPREDNISolone Sodium Succinate 125 MG/2 ML SDV IM ONE (13:39)
[2020-07-22 13:47] LABS: CHLORIDE,CL 103 mmol/L (98-107); SODIUM,NA 141 mmol/L (136-145)
--- NOTE | 2020-07-22 16:24 | EDM.PDOC ---
ED HPI GENERAL MEDICAL PROBLEM - General Chief Complaint: Respiratory Problem Stated Complaint: increased shortness of breath Time Seen by Provider: 07/22/20 12:50 Source of Information: Reports: Patient History Limitations: Reports: No Limitations - History of Present Illness INITIAL COMMENTS - FREE TEXT/NARRATIVE: Pt. presents to ER with complaints of trouble breathing for several weeks. Pt. is in the custodial in [place] and was sent to the ER with her . Pt. states that she has been experiencing cough productive of yellowish sputum. She has not been experiencing fever or chills. Pt. denies any nausea or vomiting. Denies any substernal chest pain. No jaw, arm, neck or back pain. Pt. is currently on duonebs as well as budesonide. She states that she has not been able to get in to seen her PCP for her symptoms. Onset: Today Onset Date: 07/22/20 Location: Reports: Chest, Generalized Improves with: Reports: Rest Worsens with: Reports: Movement - Related Data Allergies Allergy/AdvReac Type Severity Reaction Status Date / Time adhesive Allergy Severe Hives Verified 07/22/20 12:47 latex Allergy Cannot Verified 07/22/20 12:47 Remember zolpidem tartrate AdvReac Intermediate Disorientat Verified 07/22/20 12:47 [From Korina] ion Home Meds: Home Meds Calcium Carbonate/Vitamin D3 [Calcium 600Mg-D3 400 Unit Sfgl] 1 each PO QPM 07/11/13 [History] Cinnamon Bark [Cinnamon] 500 mg PO QAM 07/11/13 [History] Insulin Glarg,Human.Rec.Analog [Lantus] 15 unit SQ BEDTIME 07/11/13 [History] Multivitamin [Multivitamins] 1 each PO QAM 07/11/13 [History] Verapamil HCl [Verapamil ER] 240 mg PO BEDTIME 07/11/13 [History] atorvaSTATin [Lipitor] 40 mg PO BEDTIME 07/11/13 [History] Amitriptyline [Elavil] 30 mg PO BEDTIME 02/24/15 [History] Insulin Aspart [Novolog Flexpen] 5 unit SQ TIDMEALS 02/24/15 [History] Albuterol/Ipratropium [DuoNeb 3.0-0.5 MG/3 ML] 1 inh INH QID 09/04/18 [History] Aspirin [Halfprin] 1 tab PO DAILY 09/04/18 [History] Budesonide [Pulmicort] 1 applic INH BID 09/04/18 [History] Dextrose [Glutose 15] 1 tube PO TID PRN 09/04/18 [History] Vitamin B Complex 1 cap PO DAILY 09/04/18 [History] glucagon HCL [Glucagon HCl] 1 mg SUBCUT ASDIRECTED PRN 09/04/18 [History] Past Medical History HEENT History: Reports: Allergic Rhinitis, Cataract, Impaired Vision Cardiovascular History: Reports: Blood Clots/VTE/DVT, High Cholesterol, Hypertension, Other (See Below) Other Cardiovascular History: Non-ST elevation [place] Respiratory History: Reports: Asthma, Bronchitis, Recurrent, COPD, Other (See Below) Other Respiratory History: Acute respiratory failure with hypoxia Gastrointestinal History: Reports: Hepatitis, Hiatal Hernia, Jaundice Genitourinary History: Reports: Renal Calculus, Urinary Incontinence Musculoskeletal History: Reports: Fracture, Osteoarthritis Neurological History: Reports: Concussion, Headaches, Chronic, Head Trauma, Migraines Psychiatric History: Reports: Addiction, Anxiety, Depression, Psych Hospitalization(s), Suicide Attempt Endocrine/Metabolic History: Reports: Diabetes, Type I Hematologic History: Reports: None, Anemia, Iron Deficiency Immunologic History: Reports: None Oncologic (Cancer) History: Reports: None Dermatologic History: Reports: Other (See Below) Other Dermatologic History: Hx of cabral bite both hands - Infectious Disease History Infectious Disease History: Reports: Chicken Pox, Measles, Mumps - Past Surgical History Head Surgeries/Procedures: Reports: Craniotomy HEENT Surgical History: Reports: Oral Surgery Respiratory Surgical History: Reports: None Female Surgical History: Reports: Tubal Ligation, Other (See Below) Musculoskeletal Surgical History: Reports: ORIF Oncologic Surgical History: Reports: None Dermatological Surgical History: Reports: None - Past Imaging History Past Imaging History: Reports: Mammogram (In about 1999) Social & Family History - Family History HEENT: Reports: Allergic Rhinitis Cardiac: Reports: [place] Respiratory: Reports: None GI: Reports: None : Reports: None OBGYN: Reports: None Musculoskeletal: Reports: Osteoarthritis Neurological: Reports: None Psychiatric: Reports: None Endocrine/Metabolic: Reports: Hypothyroidism Hematologic: Reports: None Dermatologic: Reports: None Oncologic: Reports: Colon, Lung - Caffeine Use Caffeine Use: Reports: Coffee, Soda Other Caffeine Use: 2 cups of coffee per day. 1-2 pops per day - Living Situation & Occupation Living situation: Reports: , with Family ED ROS GENERAL - Review of Systems Review Of Systems: See Below Constitutional: Reports: No Symptoms HEENT: Reports: No Symptoms Respiratory: Reports: Shortness of Breath, Wheezing Cardiovascular: Reports: No Symptoms Endocrine: Reports: No Symptoms GI/Abdominal: Reports: No Symptoms : Reports: No Symptoms Musculoskeletal: Reports: No Symptoms Skin: Reports: No Symptoms Neurological: Reports: No Symptoms Psychiatric: Reports: No Symptoms Hematologic/Lymphatic: Reports: No Symptoms Immunologic: Reports: No Symptoms ED EXAM, GENERAL - Physical Exam Exam: See Below Exam Limited By: Uncooperative General Appearance: Alert, WD/WN, No Apparent Distress Throat/Mouth: Normal Inspection, Normal Lips, Normal Oropharynx, Normal Voice, No Airway Compromise Head: Atraumatic, Normocephalic Neck: Normal Inspection, Supple, Non-Tender, Full Range of Motion Respiratory/Chest: Decreased Breath Sounds, Wheezing Cardiovascular: Normal Peripheral Pulses, Regular Rate, Rhythm, No JVD Peripheral Pulses: 4+: Radial (L) GI/Abdominal: Soft, Non-Tender, No Distention, No Mass (Female) Exam: Deferred Rectal (Female) Exam: Deferred Back Exam: Normal Inspection, Full Range of Motion Extremities: Normal Inspection, Normal Range of Motion, Non-Tender, No Pedal Edema, Normal Capillary Refill Neurological: Alert, Oriented, CN II-XII Intact, Normal Cognition, Normal Reflexes, No Motor/Sensory Deficits Psychiatric: Normal Affect, Normal Mood Skin Exam: Warm, Dry, Intact, Normal Color, No Rash Course - Vital Signs Last Recorded V/S: Last Vital Signs Temp 36.5 C 07/22/20 12:50 Pulse 89 07/22/20 12:50 Resp 20 07/22/20 12:50 BP 124/56 L 07/22/20 12:50 Pulse Ox 90 L 07/22/20 12:50 - Orders/Labs/Meds Orders: Active Orders 24 hr Category Date Time Status RT Aerosol Therapy [RC] ASDIRECTED Care 07/22/20 12:52 Active Chest 2V [CR] Stat Exams 07/22/20 12:54 Taken Labs: Laboratory Tests 07/22/20 07/22/20 Range/Units 13:07 13:07 WBC 11.1 H (4.0-10.2) K/uL RBC 5.32 H (3.77-5.09) M/uL Hgb 14.9 D (11.7-15.5) g/dL Hct 43.9 (34.0-46.0) % MCV 82.5 L D (84.0-98.0) fL MCH 28.0 L (28.2-33.3) pg MCHC 33.9 (31.7-36.0) g/dL RDW 14.4 H (11.2-14.1) % Plt Count 328 (150-350) K/uL Neut % (Auto) 32.0 L (45.0-80.0) % Lymph % (Auto) 17.0 (10.0-50.0) % [place] % (Auto) 3.3 (2.0-14.0) % Eos % (Auto) 47.2 H (0.0-5.0) % Baso % (Auto) 0.5 (0.0-2.0) % Neut # (Auto) 3.56 (1.40-7.00) K/uL Lymph # (Auto) 1.89 (0.50-3.50) K/uL [place] # (Auto) 0.37 (0.00-1.00) K/uL Eos # (Auto) 5.26 H (0.00-0.50) K/uL Baso # (Auto) 0.06 (0.00-0.20) K/uL Sodium 141 (136-145) mmol/L Potassium 4.1 (3.5-5.1) mmol/L Chloride 103 (98-107) mmol/L Carbon Dioxide 26.8 (21.0-32.0) mmol/L BUN 10 (7-18) mg/dL Creatinine 0.68 (0.51-1.17) mg/dL Est Cr Clr Drug Dosing TNP Estimated GFR (MDRD) > 60 mL/min Glucose 149 H (70-99) mg/dL Calcium 9.7 (8.5-10.1) mg/dL Total Bilirubin 0.3 (0.2-1.0) mg/dL AST 14 L (15-37) U/L ALT 24 (12-78) U/L Alkaline Phosphatase 147 H (46-116) IU/L C-Reactive Protein 0.2 (<=0.9) mg/dL NT-Pro-B Natriuret Pep 31 (0-125) pg/mL Total Protein 7.6 (6.4-8.2) g/dL Albumin 3.9 (3.4-5.0) g/dL Meds: Medications Discontinued Medications Generic Name Dose Route Start Last Admin Trade Name Freq PRN Reason Stop Dose Admin Albuterol/Ipratropium 3 ml 07/22/20 12:52 07/22/20 13:41 Albuterol/Ipratropium 3.0-0.5 Mg/3 Ml Neb Soln NEB 07/22/20 12:53 Not Given ONETIME ONE Methylprednisolone Sodium Succinate 125 mg 07/22/20 12:55 07/22/20 13:38 Methylprednisolone Sodium Succinate 125 Mg/2 Ml Sdv IV 07/22/20 12:56 125 mg ONETIME ONE Administration Methylprednisolone Sodium Succinate 125 mg 07/22/20 13:35 07/22/20 13:41 Methylprednisolone Sodium Succinate 125 Mg/2 Ml Sdv IVPUSH 07/22/20 13:36 Not Given ONETIME ONE Methylprednisolone Sodium Succinate 125 mg 07/22/20 13:39 Methylprednisolone Sodium Succinate 125 Mg/2 Ml Sdv IM 07/22/20 13:40 ONETIME ONE Departure - Departure Time of Disposition: 13:45 Disposition: DC/Tfer to [facility] Clinical Impression: COPD exacerbation - Discharge Information Instructions: Chronic Obstructive Pulmonary Disease Exacerbation, [id number], Doxycycline tablets or capsules, Prednisone oral solution Referrals: Swathi Hernandez PA-C [Primary Care Provider] - Forms: ED Department Discharge Additional Instructions: Prednisone 20mg 3 tabs daily for 7 days Doxycycline 100mg 1 twice daily for 10 days Follow-up in clinic in 10-14 days, sooner if not gradually improving. Sepsis Event Note (ED) - Evaluation Sepsis Screening Result: No Definite Risk - Focused Exam Vital Signs: Vital Signs Temp Pulse Resp BP Pulse Ox 07/22/20 12:50 36.5 C 89 20 124/56 L 90 L - Problem List Review Problem List Initiated/Reviewed/Updated: Yes - My Orders Last 24 Hours: My Active Orders 07/22/20 12:52 RT Aerosol Therapy [RC] ASDIRECTED 07/22/20 12:54 Chest 2V [CR] Stat - Assessment/Plan Last 24 Hours: My Active Orders 07/22/20 12:52 RT Aerosol Therapy [RC] ASDIRECTED 07/22/20 12:54 Chest 2V [CR] Stat Plan: Prednisone 20mg 3 tabs daily for 7 days Doxycycline 100mg 1 twice daily for 10 days Follow-up in clinic in 10-14 days, sooner if not gradually improving.
== END 2020-07-22 13:45 ==
LOC: LL.ED 12:44
DX: J44.1 Chronic obstructive pulmonary disease with (acute) exacerbation (principal); E78.00 Pure hypercholesterolemia, unspecified; I10 Essential (primary) hypertension; J44.9 Chronic obstructive pulmonary disease, unspecified; I25.2 Old myocardial infarction; E10.9 Type 1 diabetes mellitus without complications; Z79.899 Other long term (current) drug therapy; Z91.018 Allergy to other foods; Z88.5 Allergy status to narcotic agent
CPT/HCPCS: 36415; 71046; 80053; 83880; 85025; 86140; 96374; 99285; J2930; 99283